=== PATIENT | male | born 1955 | race Caucasian/White ===

== ENCOUNTER → 2022-01-17 | Outpatient (CLI) | payer MEDICARE, BC | END | disposition home or self-care (01) | LOC: RAD 17:23 | PROVIDERS: ATTEND General Practice | DX: M47.817 Spondylosis without myelopathy or radiculopathy, lumbosacral region (principal); M16.11 Unilateral primary osteoarthritis, right hip; I70.90 Unspecified atherosclerosis ==

== ENCOUNTER → 2022-01-19 | Outpatient (CLI) | payer MEDICARE, BC ==
[2022-01-19 16:11] LABS: ALKALINE PHOSPHATASE 72 U/L (45-117); BUN 10 mg/dl (7-24); CHLORIDE 103 mmol/L (98-107); CHOLESTEROL 197 mg/dL (<200); CREATININE 0.86 mg/dL (0.70-1.30); LDL CHOLESTEROL 123 mg/dL (9-159); POTASSIUM 4.1 mmol/L (3.5-5.1); SGOT/AST 17 IU/L (3-35); SGPT/ALT 22 U/L (12-78); SODIUM 136 mmol/L (136-145); TOTAL PROTEIN 8.1 gm/dL (6.4-8.2); TRIGLYCERIDES 111 mg/dl (<150)
== END | disposition home or self-care (01) ==
LOC: LAB 15:23
PROVIDERS: ATTEND Internal Medicine Cardiovascular Disease
DX: I10 Essential (primary) hypertension (principal); Z95.1 Presence of aortocoronary bypass graft

== ENCOUNTER → 2022-01-31 | Outpatient (CLI) | payer MEDICARE, BC | LOC: RAD 15:53 | PROVIDERS: ATTEND Family Medicine | DX: M16.12 Unilateral primary osteoarthritis, left hip (principal) ==

== ENCOUNTER → 2022-02-10 | Outpatient (CLI) | payer MEDICARE, BC ==
[2022-02-10 14:49] LABS: BUN 16 mg/dl (7-24); CREATININE 0.75 mg/dL (0.70-1.30)
== END | disposition home or self-care (01) ==
LOC: LAB 14:21
PROVIDERS: ATTEND Specialist
DX: H90.5 Unspecified sensorineural hearing loss (principal)

== ENCOUNTER 2022-05-02 11:39 | Emergency (ER) | payer MEDICARE, BC ==
[~2022-05-02] VITALS: Ht 165.1 cm; Wt 88.5 kg
[2022-05-02 12:20] LABS: BASO % 0.6 % (0.0-1.0); EOS # 0.1 10*3/uL (0.0-0.4); EOS % 1.5 % (1.0-4.0); HEMATOCRIT 42.5 % (42.0-52.0); LYMPH # 0.7 10*3/uL (1.3-4.4); LYMPH % 15.9 % (27.0-41.0); MEAN CELL VOLUME 90.2 fl (80.0-94.0); MEAN CORPUSCULAR HGB 30.8 pg (27.0-31.0); MEAN CORPUSCULAR HGB CONC 34.1 g/dl (33.0-37.0); MEAN PLATELET VOLUME 9.6 fl (9.6-12.3); MONO # 0.4 10*3/uL (0.1-1.0); NEUT # 3.4 10*3/uL (2.3-7.9); NEUT % 73.8 % (47.0-73.0); PLATELET COUNT AUTOMATED 208 10*3/uL (130-400); RED BLOOD COUNT 4.71 10*6/uL (4.50-5.90); RED CELL DISTRI WIDTH 12.5 % (0-14.5); WHITE BLOOD COUNT 4.7 10*3/uL (4.8-10.8)
[2022-05-02 12:31] LABS: ACT PARTIAL THROMBO TIME 24.9 SECONDS (20.0-32.1)
[2022-05-02 12:39] LABS: ALKALINE PHOSPHATASE 64 U/L (46-116); BUN 8 mg/dl (9-23); CHLORIDE 101 mmol/L (98-107); LIPASE 26 U/L (12-53); SGPT/ALT 18 U/L (10-49); TOTAL PROTEIN 7.8 gm/dL (6.0-8.0)
== END 2022-05-02 15:25 | disposition home or self-care (01) ==
LOC: ED 11:39
PROVIDERS: Emergency Medicine
DX: R42 Dizziness and giddiness (principal); Z88.8 Allergy status to other drugs, medicaments and biological substances

== ENCOUNTER 2022-08-03 10:21 | Emergency (ER) | payer MEDICARE, BC ==
[~2022-08-03] VITALS: Wt 88.5 kg
[2022-08-03 12:02] LABS: BASO % 0.2 % (0.0-1.0); EOS # 0.1 10*3/uL (0.0-0.4); EOS % 1.1 % (1.0-4.0); LYMPH # 0.9 10*3/uL (1.3-4.4); LYMPH % 17.6 % (27.0-41.0); MEAN CELL VOLUME 89.7 fl (80.0-94.0); MEAN CORPUSCULAR HGB 30.6 pg (27.0-31.0); MEAN CORPUSCULAR HGB CONC 34.1 g/dl (33.0-37.0); MEAN PLATELET VOLUME 9.2 fl (9.6-12.3); MONO # 0.5 10*3/uL (0.1-1.0); MONO % 8.6 % (3.0-9.0); NEUT # 3.8 10*3/uL (2.3-7.9); NEUT % 72.3 % (47.0-73.0); PLATELET COUNT AUTOMATED 200 10*3/uL (130-400); RED BLOOD COUNT 4.57 10*6/uL (4.50-5.90); RED CELL DISTRI WIDTH 12.7 % (0-14.5); WHITE BLOOD COUNT 5.2 10*3/uL (4.8-10.8)
[2022-08-03 12:14] LABS: ACT PARTIAL THROMBO TIME 27.8 SECONDS (20.0-32.1)
[2022-08-03 12:20] LABS: ALKALINE PHOSPHATASE 65 U/L (46-116); BUN 10 mg/dl (9-23); CHLORIDE 103 mmol/L (98-107); LIPASE 25 U/L (12-53); POTASSIUM 4.1 mmol/L (3.4-5.1); SGPT/ALT 17 U/L (10-49); TOTAL PROTEIN 7.5 gm/dL (6.0-8.0)
== END 2022-08-03 13:35 | disposition home or self-care (01) ==
LOC: ED 10:21
PROVIDERS: Physician Assistant
DX: J40 Bronchitis, not specified as acute or chronic (principal)